=== PATIENT | female | born 1985 | race Caucasian/White ===

== ENCOUNTER 2017-05-23 18:56 | Emergency (ER) | payer BC, OTHER ==
[~2017-05-23] VITALS: Wt 113.2 kg
[2017-05-23] MEDS ORDERED: ACETAMINOPHEN 325 MG TAB PO STA (20:42)
--- NOTE | 2017-05-23 20:42 | ERD ---
ER Documentation Chief Complaint Chief Complaint vag. bleed and abd. pain x1 week. Just found out she's HPI This 32-year-old female presents to emergency department with complaint of ABD pain, vaginal bleeding, and UTI . pt was dx with a UTI at work , reports Leucocytosis on UA, pt works in a [employer] office, was prescribed Macrobid, picked up medication today but has not started it. pt did a U-preg today and it was positive.. vaginal bleeding though to be normal menstruation x 5 days . ROS All systems reviewed and are negative except as per history of present illness. Allergies Allergies: Coded Allergies: No Known Allergy (Unverified , 05/23/17) PMhx/Soc Medical and Surgical Hx: pt denies Medical Hx, pt denies Surgical Hx Hx Alcohol Use: No Hx Substance Use: No Hx Tobacco Use: No Smoking Status: Never smoker Physical Exam Vitals Vital Signs Date Time Temp Pulse Resp B/P Pulse Ox O2 Delivery O2 Flow Rate FiO2 05/23/17 19:12 99.0 87 18 121/71 100 Physical Exam Const: [] Head: Atraumatic Eyes: Normal Conjunctiva ENT: Normal External Ears, Nose and Mouth. Neck: Full range of motion..~ No meningismus. Resp: Clear to auscultation bilaterally Cardio: Regular rate and rhythm, no murmurs Abd: Soft, non tender, non distended. Normal bowel sounds Skin: No petechiae or rashes Back: No midline or flank tenderness Ext: No cyanosis, or edema Neur: Awake and alert Psych: Normal Mood and Affect Result Diagram: 05/23/172109 Results 24 hrs Laboratory Tests Test 05/23/17 21:00 05/23/17 21:10 Urine Color YELLOW Urine Clarity CLEAR Urine pH 5.0 Urine Specific [place] 1.029 Urine Ketones 1+mg/dL Urine Nitrite NEGATIVEmg/dL Urine Bilirubin NEGATIVEmg/dL Urine Urobilinogen 1+mg/dL Urine Leukocyte Esterase TRACELeu/ul Urine Microscopic RBC 2/HPF Urine Microscopic WBC 1/HPF Urine Squamous Epithelial Cells FEW/HPF Urine Bacteria FEW/HPF Urine Mucus MODERATE/HPF Urine Hemoglobin NEGATIVEmg/dL Urine Glucose NEGATIVEmg/dL Urine Total Protein NEGATIVEmg/dl White Blood Count 12.110^3/ul Red Blood Count 4.3310^6/ul Hemoglobin 12.7g/dl Hematocrit 39.3% Mean Corpuscular Volume 90.8fl Mean Corpuscular Hemoglobin 29.3pg Mean Corpuscular Hemoglobin Concent 32.3g/dl Red Cell Distribution Width 15.3% Platelet Count 20068^3/UL Mean Platelet Volume 10.4fl Neutrophils % 59.0% Lymphocytes % 31.7% Monocytes % 5.5% Eosinophils % 3.1% Basophils % 0.2% Nucleated Red Blood Cells % 0.0/100WBC Neutrophils # 7.210^3/ul Lymphocytes # 3.810^3/ul Monocytes # 0.710^3/ul Eosinophils # 0.410^3/ul Basophils # 0.010^3/ul Nucleated Red Blood Cells # 0.010^3/ul Beta HCG, Quantitative 1775.4mIU/ml Current Medications Medications (Trade) Dose Ordered Sig/Vi Route PRN Reason Start Time Stop Time Status Last Admin Dose Admin Acetaminophen (Tylenol Tab) 650 mg ONCE STAT PO 05/23/17 20:42 05/23/17 20:45 DC 05/23/17 20:56 Interpretation text CBC shows no evidence of hemorrhage or infection Chemistry shows no evidence of significant electrolyte abnormalities or renal insufficiency Urinalysis positive for leukocytosis, RBCs Beta hCG qualitative 1775.4mIU/m suggestive of of a 5 week Procedures/MDM PROCEDURE: Ultrasound of the pelvis. CLINICAL INDICATION: Vaginal bleeding TECHNIQUE: Transabdominal and transvaginal ultrasound of the pelvis was performed. COMPARISON: There are no similar studies submitted for comparison. FINDINGS: LAST MENSTRUAL PERIOD: 05/01/2017 UTERUS and GESTATIONAL SAC Uterus: Some fluid is noted within the endometrium. This equivocally represent a gestational sac. The mean sac diameter would correspond to an estimated gestational age of 5 weeks 6 days if this indeed represents a gestational sac. Yolk sac: Not definitely seen. Subchorionic hemorrhage: None. OVARIES Right ovary: 4.7 x 3.2 x 3.3 Findings: There is Doppler flow to the right ovary. A 2.6 cm corpus luteum is noted within the right ovary. Left ovary: 6.1 x 3.2 x 4.8 Findings: There is Doppler flow to the left ovary. There are 2 2.8 cm complex cystic lesions in the left ovary. Cul-de-sac: There is a small amount of pelvic free fluid. IMPRESSION: No definite intrauterine gestational sac. Correlation with serial beta HCGs is recommended along with continued follow-up. Right ovarian corpus luteum. Complex left ovarian cystic lesions. 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 Patient reports history of similar circumstances with her other children. Emergency room course includes laboratory testing, for hemorrhage, acute infection, WBCs elevated, this is not an abnormal finding in , urinalysis shows trace leukocytes and RBCs also not abnormal with vaginal bleeding. Patient has no electrolyte dysfunction, or renal insufficiency. Beta hCG qualitative is 1775. Allergy ultrasound interpretation no definite intrauterine gestational sac, correlation with serial beta hCG is recommended along with continued follow-up right ovarian corpus luteum left ovarian cystic lesion. Structures to return to ER for repeat beta hCG and ultrasound, or follow-up with primary gynecology. Be prescribed 7 5/325 [place], and Tylenol for symptom relief of pain. Patient instructed to take Macrobid that was prescribed by her doctor. Teaching provided medication safe until 38 through 42 weeks of gestation. Patient is stable with no new complaints during ER course, clinically there is no current evidence to suggest ovarian torsion, missed , sepsis, acute abdomen, acute coronary syndromes, pulmonary embolism or any other emergent condition appearing to require further evaluation or hospitalization. I feel the patient is stable for discharge at this time. I have discussed results, examination findings, the treatment plan with the patient and family present prior to discharge. Indications for emergent reevaluation, side effects of medication were also discussed. All questions were answered. Patient verbalizes understanding and agrees with plan of care. Departure Diagnosis: Primary Impression: Threatened miscarriage Additional Impression: UTI (urinary tract infection) Urinary tract infection type: acute cystitis Hematuria presence: with hematuria Qualified Code: N30.01 - Acute cystitis with hematuria Condition: Good Patient Instructions: Possible Miscarriage (Threatened ) Referrals: [employer] REFERRAL LIST Additional Instructions: Thank you for for coming to [facility] for your care today. Please ask your nurse or provider if you have questions about your care today and do not leave until all your questions have been answered. Please use any medications given as directed and follow-up with your doctor (or the doctor you were referred to) in the next 2-3 days. If you do not have a primary care doctor you may follow up at the [facility] (listed below). You may also use motrin and tylenol as needed for fever and/or pain unless instructed otherwise by your provider or nurse. Indications for more urgent follow-up have been discussed, but you may return to the Emergency Department at ANY time for any worrisome or worsening symptoms. If you have abdominal pain, please know that no test or exam you received is perfect and you should follow up within 8 hours for continued pain. If you had any imaging studies today, such as an X-Ray or CT Scan, these studies will be reviewed later by a radiologist. You will be called if there are important findings that were not identified today, so make sure the contact information you provided at registration is correct. If you received any narcotic pain control medicine today, such as Vicodin, Morphine or Dilaudid, your coordination and judgment may be affected for a number of hours. Please do not drive or operate heavy machinery, and you may want someone to assist you at home. If you were given a prescription for narcotic medication, be aware that it is very addictive- use sparingly and only if necessary. LYNDSAY VARGAS May 23, 2017 20:42
[2017-05-23 21:17] LABS: BASOPHILS % 0.2 % (0.0-2.0); EOSINOPHILS # 0.4 10^3/ul (0.0-0.5); EOSINOPHILS % 3.1 % (0.0-7.0); HEMATOCRIT 39.3 % (37.0-47.0); HEMOGLOBIN 12.7 g/dl (12.0-16.0); LYMPHOCYTES # 3.8 10^3/ul (0.8-2.9); LYMPHOCYTES % 31.7 % (15.0-51.0); MEAN CORPUSCULAR HEMOGLOBIN 29.3 pg (29.0-33.0); MEAN CORPUSCULAR HGB CONC 32.3 g/dl (32.0-37.0); MEAN CORPUSCULAR VOLUME 90.8 fl (82.0-101.0); MEAN PLATELET VOLUME 10.4 fl (7.4-10.4); MONOCYTE # 0.7 10^3/ul (0.3-0.9); MONOCYTES % 5.5 % (0.0-11.0); NEUTROPHIL # 7.2 10^3/ul (1.6-7.5); PLATELET COUNT 306 10^3/UL (140-415); RED BLOOD COUNT 4.33 10^6/ul (4.20-5.40); RED CELL DISTRIBUTION WIDTH 15.3 % (11.5-14.5); WHITE BLOOD COUNT 12.1 10^3/ul (4.8-10.8)
[2017-05-23 21:21] LABS: ADD UMIC YES; UR ASCORBIC ACID NEGATIVE (NEGATIVE); UR BACTERIA FEW /HPF (NONE SEEN); UR BILIRUBIN (Dip) NEGATIVE (NEGATIVE); UR BLOOD (Dip) NEGATIVE (NEGATIVE); UR CLARITY CLEAR (CLEAR); UR COLOR YELLOW (YELLOW); UR GLUCOSE (Dip) NEGATIVE (NEGATIVE); UR KETONES (Dip) 1+ mg/dL (NEGATIVE); UR LEUKOCYTE ESTERASE (Dip) TRACE Leu/ul (NEGATIVE); UR MUCUS MODERATE /HPF (NONE SEEN); UR NITRITE (Dip) NEGATIVE (NEGATIVE); UR RBC 2 /HPF (0-5); UR SPECIFIC GRAVITY (Dip) 1.029 (1.003-1.030); UR SQUAMOUS EPITHELIAL CELL FEW /HPF (FEW); UR TOTAL PROTEIN (Dip) NEGATIVE (NEGATIVE); UR UROBILINOGEN (Dip) 1+ mg/dL (NEGATIVE)
--- NOTE | 2017-05-23 23:48 | RADRPT ---
PROCEDURE: Ultrasound of the pelvis. CLINICAL INDICATION: Vaginal bleeding TECHNIQUE: Transabdominal and transvaginal ultrasound of the pelvis was performed. COMPARISON: There are no similar studies submitted for comparison. FINDINGS: LAST MENSTRUAL PERIOD: 05/01/2017 UTERUS and GESTATIONAL SAC Uterus: Some fluid is noted within the endometrium. This equivocally represent a gestational sac. Th e mean sac diameter would correspond to an estimated gestational age of 5 weeks 6 days if this indee d represents a gestational sac. Yolk sac: Not definitely seen. Subchorionic hemorrhage: None. OVARIES Right ovary: 4.7 x 3.2 x 3.3 Findings: There is Doppler flow to the right ovary. A 2.6 cm corpus luteum is noted within the right ovary. Left ovary: 6.1 x 3.2 x 4.8 Findings: There is Doppler flow to the left ovary. There are 2 2.8 cm complex cystic lesions in the left ovary. Cul-de-sac: There is a small amount of pelvic free fluid. IMPRESSION: No definite intrauterine gestational sac. Correlation with serial beta HCGs is recommended along wit h continued follow-up. Right ovarian corpus luteum. Complex left ovarian cystic lesions. RPTAT: HIKT .Hu Rollins MD, MD Date Time Electronically viewed and signed by .Hu Rollins MD, MD on 05/23/2017 23:48 .T/
[2017-05-24] MEDS ORDERED: ACET500C5 PO (00:09)
[2017-05-24] MEDS ORDERED: HYDR-906 PO (00:09)
== END 2017-05-24 00:17 | disposition home or self-care (01) ==
LOC: FTE 18:56
DX: O20.0 Threatened abortion (principal); O23.11 Infections of bladder in pregnancy, first trimester; Z3A.01 Less than 8 weeks gestation of pregnancy
CPT/HCPCS: 36415; 76801; 76817; 81001; 84702; 85025; Z7502; Z7610